=== PATIENT | male | born 1995 ===

== ENCOUNTER 2019-06-27 21:29 | Emergency (ER) | payer MEDICAID ==
[~2019-06-27] VITALS: Ht 170.2 cm; Wt 77.3 kg
[2019-06-27] MEDS ORDERED: PSYCH MED PO (21:31)
[2019-06-27 21:35] VITALS: BP 119/70
[2019-06-27] MEDS ORDERED: PERTUSS(ACELL),DIPH,TET VAC/PF 0.5 ML VIAL IM ONE (23:00)
== END 2019-06-27 23:25 | disposition home or self-care (01) ==
LOC: EMS 21:31
DX: S91.111A Laceration without foreign body of right great toe without damage to nail, initial encounter (principal); L03.115 Cellulitis of right lower limb; F32.9 Major depressive disorder, single episode, unspecified; F20.9 Schizophrenia, unspecified; F17.210 Nicotine dependence, cigarettes, uncomplicated; F19.90 Other psychoactive substance use, unspecified, uncomplicated; W45.8XXA Other foreign body or object entering through skin, initial encounter; Y93.89 Activity, other specified; Y92.89 Other specified places as the place of occurrence of the external cause; Y99.8 Other external cause status
CPT/HCPCS: 90471; 90715; 99406